=== PATIENT | male | born 1985 | race Two or more races ===

== ENCOUNTER 2017-08-22 21:24 | Emergency (ER) | payer MEDICAID ==
[~2017-08-22] VITALS: Ht 182.9 cm; Wt 91.2 kg
[~2017-08-22 21:24] MED LIST: HYDR28CR14 TP
[2017-08-22 21:36] VITALS: BP 142/97
[2017-08-22] MEDS ORDERED: proparacaine 0.5% ophthalmic drops 15ml RIGHTEYE ONE (22:10)
== END 2017-08-22 22:38 | disposition home or self-care (01) ==
LOC: ER 21:24
DX: H57.11 Ocular pain, right eye (principal); Z53.21 Procedure and treatment not carried out due to patient leaving prior to being seen by health care provider
CPT/HCPCS: 99283

== ENCOUNTER 2018-02-24 16:40 | Emergency (ER) | payer MEDICAID ==
[~2018-02-24] VITALS: Ht 180.3 cm; Wt 90.9 kg
[2018-02-24] MEDS ORDERED: SULF1TAB49 PO (17:03)
[2018-02-24] MEDS ORDERED: CEPH500C5 PO (17:03)
[2018-02-24 17:12] VITALS: BP 124/74
== END 2018-02-24 17:16 | disposition home or self-care (01) ==
LOC: ER 16:41
DX: S40.861A Insect bite (nonvenomous) of right upper arm, initial encounter (principal); S40.862A Insect bite (nonvenomous) of left upper arm, initial encounter; L03.114 Cellulitis of left upper limb; L03.113 Cellulitis of right upper limb; F12.90 Cannabis use, unspecified, uncomplicated; Z79.899 Other long term (current) drug therapy; W57.XXXA Bitten or stung by nonvenomous insect and other nonvenomous arthropods, initial encounter; Y93.89 Activity, other specified; Y92.89 Other specified places as the place of occurrence of the external cause; Y99.8 Other external cause status
CPT/HCPCS: 99283